=== PATIENT | female | born 1985 | race Caucasian/White ===

== ENCOUNTER 2018-02-07 09:45 | Inpatient (IN) | payer BC ==
[~2018-02-07] VITALS: Ht 165.1 cm; Wt 86.4 kg
[2018-02-07] VITALS (18 sets, daily range): BP systolic 105–121; BP diastolic 62–76; PULSE 60–98; TEMP 98.2–98.5
[~2018-02-07 09:45] MED LIST: PRENATAL1 TA1 PO
[2018-02-07 10:42] LABS: HEMATOCRIT 35.7 % (37.0-47.0); HEMOGLOBIN 11.9 g/dl (12.5-16.0); MEAN CELL VOLUME 92 fl (80.0-100.0); MEAN CORPUSCULAR HEMOGLOBIN 31 pg (27.0-31.0); MEAN CORPUSCULAR HGB CONC 33 g/dl (33.0-37.0); PLATELET COUNT 310 K/mm3 (130-400); REDCELL DISTRIBUTION WIDTH-CV 13.1 % (11.5-14.5)
[2018-02-07] MEDS ORDERED: LEXAPRO 10MG10 MG PO (10:44)
[2018-02-07] MEDS ORDERED: PREVACID 15MG15 M1 PO (10:45)
[2018-02-07 11:31] LABS: BAND 2 % (0-10); LYMPHOCYTE 24 % (20.0-51.0); NEUTROPHILS 72 % (42.0-75.2); PLATELET ESTIMATE INCREASED (NORMAL)
[2018-02-08] VITALS: BP 120/66; PULSE 80; TEMP 98.3
[2018-02-08 07:30] VITALS: BP 102/63; PULSE 66; TEMP 98.1
[2018-02-08] MEDS ORDERED: PERCOCET 325 MG1 TA2 PO (07:30)
[2018-02-08] MEDS ORDERED: MOTRIN 800800 MG/TAB PO (07:30)
[2018-02-08 12:25] VITALS: BP 106/71; PULSE 85; TEMP 97.9
[2018-02-08 16:15] VITALS: BP 114/77; PULSE 73; TEMP 98.1
[2018-02-08 19:30] VITALS: BP 115/66; PULSE 89; TEMP 97.9
[2018-02-09 07:30] VITALS: BP 127/83; PULSE 87; TEMP 97.7
== END 2018-02-09 11:30 | disposition home or self-care (01) | DRG 766 ==
LOC: LDR 09:45 → OB 09:57
PROVIDERS: Obstetrics & Gynecology
PROC: 10D00Z1 Extraction of Products of Conception, Low, Open Approach (ICD-10-PCS; principal; 2018-02-07)
DX: O34.211 Maternal care for low transverse scar from previous cesarean delivery (principal); Z3A.39 39 weeks gestation of pregnancy; Z37.0 Single live birth
CPT/HCPCS: J0690; J1885; J2270; J2370; J2405; J2590; J7120